=== PATIENT | male | born 1965 | race American Indian/Alaskan Native ===

== ENCOUNTER 2018-05-22 18:17 | Emergency (ER) | payer BC ==
[2018-05-22 18:18] VITALS: BMI 35.5
[2018-05-22 18:40] VITALS: O2SAT 99
[2018-05-22] MEDS ORDERED: Sodium Chloride 0.9% 1,000 ML IV STA (18:53)
--- NOTE | 2018-05-22 18:58 | ED PDOC ---
Arrival/HPI - General Chief Complaint: Back Pain Time Seen by Provider: 05/22/18 18:32 Historian: Patient - History of Present Illness Narrative History of Present Illness (Text): 05/22/18 18:56 53 yo M w/ PMH of hypertension and diabetes, presents to the ER complaining of 3 day h/o sudden onset of constant R flank pain radiating tot he R groin. Pt states that he was recently told by his omd he has kidney stones found on Ultr asound Otherwise reports no fever, chills, nausea, vomiting, diarrrhea, urinary symptoms, trauma, injury, heavy lifting, bowel/bladder incontinence, weakness, paresthesia. Past Medical History - Infectious Disease Hx of Infectious Diseases: None - Tetanus Immunization Tetanus Immunization: Up to Date - Cardiac Hx Hypertension: Yes - Endocrine/Metabolic Hx Diabetes Mellitus Type 2: Yes - Psychiatric Hx Substance Use: No - Past Surgical History Past Surgical History: No Previous - Anesthesia Hx Anesthesia: No Hx Anesthesia Reactions: No Hx Malignant Hyperthermia: No - Suicidal Assessment Feels Threatened In Home Enviroment: No Family/Social History Family/Social History: No Known Family HX Smoking Status: Never Smoked Hx Alcohol Use: No Hx Substance Use: No Hx Substance Use Treatment: No Allergies/Home Meds Allergies/Adverse Reactions: Allergies No Known Allergies Allergy (Verified 07/02/14 05:08) Home Medications: Home Meds Medication Instructions Recorded Confirmed No Known Home Med 07/02/14 07/02/14 Review of Systems - Review of Systems Constitutional: absent: Fatigue, Fevers Respiratory: absent: SOB, Cough Cardiovascular: absent: Chest Pain, Palpitations Gastrointestinal: absent: Abdominal Pain, Nausea, Vomiting Genitourinary Male: absent: Dysuria, Frequency, Hematuria Musculoskeletal: Back Pain. absent: Arthralgias, Neck Pain Skin: absent: Rash, Pruritis, Skin Lesions Neurological: absent: Headache, Dizziness Physical Exam Vital Signs Temp Pulse Resp BP Pulse Ox 05/22/18 18:38 98.2 F 97 H 19 144/87 99 Temperature: Afebrile Blood Pressure: Normal Pulse: Regular Respiratory Rate: Normal Appearance: Positive for: Well-Appearing, Non-Toxic, Comfortable Pain Distress: None Mental Status: Positive for: Alert and Oriented X 3 - Systems Exam Head: Present: Atraumatic, Normocephalic Pupils: Present: PERRL Extroacular Muscles: Present: EOMI Conjunctiva: Present: Normal Mouth: Present: Moist Mucous Membranes Neck: Present: Normal Range of Motion Respiratory/Chest: Present: Clear to Auscultation, Good Air Exchange. No: Respiratory Distress, Accessory Muscle Use Cardiovascular: Present: Regular Rate and Rhythm, Normal S1, S2. No: Murmurs Abdomen: No: Tenderness, Distention, Peritoneal Signs, Rebound, Guarding Back: Present: Normal Inspection. No: CVA Tenderness, Midline Tenderness, Paraspinal Tenderness Upper Extremity: Present: Normal Inspection. No: Cyanosis, Edema Lower Extremity: Present: Normal Inspection. No: Edema Neurological: Present: GCS=15, CN II-XII Intact, Speech Normal, Motor Func Grossly Intact, Normal Sensory Function Skin: Present: Warm, Dry, Normal Color. No: Rashes Psychiatric: Present: Alert, Oriented x 3, Normal Insight, Normal Concentration Medical Decision Making ED Course and Treatment: 05/22/18 18:55 Plan : - Labs - IV - CT A/P CBC reviewed and wnl, CMP and UA still pending, CMP hemolyzed, however the patient is refusing another blood draw or IV attempt by any ER staff. Patient refuses further care, evaluation or treatment in the ER. He is refusing labs and CT. Patient informed of the reasons for the following and planned treatment, which patient understands, however still refuses. Patient informed of the risk and benefits of treatment. Informed that the risk could include worsening of current conditions, undiagnosed conditions, disability or even . Patient understands the following risk and the benefits of treatment. Patient has the capacity to make decisions and still refuses treatment by RN, PA and ER MD. Patient encouraged to return to the ER at any time and to follow up with pmd. 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 Disposition/Present on Arrival - Present on Arrival Any Indicators Present on Arrival: Yes History of DVT/PE: No History of Uncontrolled Diabetes: Yes Urinary Catheter: No History of Decub. Ulcer: No History Surgical Site Infection Following: None - Disposition Have Diagnosis and Disposition been Completed?: Yes Diagnosis: Flank pain, acute Disposition: AGAINST MEDICAL ADVICE Disposition Time: 20:00 Patient Plan: Other (pt wishes to leave AMA) Condition: UNKNOWN Discharge Instructions (ExitCare): Flank Pain (DC), Leaving Against Medical Advice Referrals: Mohamud Worrell DO [Primary Care Provider] - Follow up with primary Forms: [employer] (Armenian)
[2018-05-22 19:00] LABS: BASO # 0.01 K/mm3 (0.0-2.0); BASO % 0.2 % (0.0-3.0); EOS # 0.3 (0.0-0.7); EOS % 5.2 % (1.5-5.0); GRAN # 2.2 (1.4-6.5); GRAN % 42.3 % (50.0-68.0); LYMPH # 2.4 (1.2-3.4); LYMPH % 46.7 % (22.0-35.0); MEAN CELL VOLUME 89.8 fl (80.0-105.0); MEAN CORPUSCULAR HEMOGLOBIN 31.2 pg (25.0-35.0); MEAN CORPUSCULAR HGB CONC 34.7 g/dl (31.0-37.0); MEAN PLATELET VOLUME 12.1 fl (7.0-11.0); MONO # 0.3 (0.1-0.6); MONO % 5.6 % (1.0-6.0); RBC 4.81 10^6/uL (3.5-6.1); RED CELL DISTRIBUTION WIDTH 12.8 % (11.5-14.5); WHITE BLOOD COUNT 5.2 10^3/uL (4.5-11.0)
[2018-05-22 20:18] VITALS: BP 134/86; PULSE 95; RESP 18; TEMP 98
== END 2018-05-22 20:12 | disposition left against medical advice (07) ==
LOC: ED 18:17
DX: R10.9 Unspecified abdominal pain (principal)

== ENCOUNTER 2018-09-20 14:15 | Emergency (ER) | payer BC ==
[2018-09-20 14:29] VITALS: TEMP 98.4; BMI 32.0
--- NOTE | 2018-09-20 15:10 | ED PDOC ---
Arrival/HPI - History of Present Illness Narrative History of Present Illness (Text): 09/20/18 15:04 Pt is a 53yo male with a PMH of DM, HTN, HLD who presents with neck pain and a headache. Pt states the neck pain started about 1 month ago and a headache that started today. Pt denies history of neck injury, fall or photophobia. Pt denies speaking with his PMD Dr Worrell about his neck pain. Pt denies this ever happening before. Time/Duration: > month Symptom Course: Worsening <Edgardo Heck - Last Filed: 09/20/18 17:13> <Kong Benson DO - Last Filed: 09/20/18 19:53> - General Chief Complaint: Headache Past Medical History - Infectious Disease Hx of Infectious Diseases: None - Tetanus Immunization Tetanus Immunization: Up to Date - Cardiac Hx Hypertension: Yes - Endocrine/Metabolic Hx Diabetes Mellitus Type 2: Yes - Psychiatric Hx Substance Use: No - Past Surgical History Past Surgical History: No Previous - Anesthesia Hx Anesthesia: No Hx Anesthesia Reactions: No Hx Malignant Hyperthermia: No - Suicidal Assessment Feels Threatened In Home Enviroment: No <Edgardo Heck - Last Filed: 09/20/18 17:13> Family/Social History Family/Social History: Unknown Family HX Smoking Status: Never Smoked Hx Alcohol Use: No Hx Substance Use: No Hx Substance Use Treatment: No <Edgardo Heck - Last Filed: 09/20/18 17:13> Allergies/Home Meds <Edgardo Heck - Last Filed: 09/20/18 17:13> <Kong Benson DO - Last Filed: 09/20/18 19:53> Allergies/Adverse Reactions: Allergies No Known Allergies Allergy (Verified 07/02/14 05:08) Physical Exam Vital Signs Temp Pulse Resp BP Pulse Ox 09/20/18 14:27 98.4 F 81 118 H 149/100 H 96 Temperature: Afebrile Blood Pressure: Normal Pulse: Regular Respiratory Rate: Normal Appearance: Positive for: Well-Appearing Mental Status: Positive for: Alert and Oriented X 3 - Systems Exam Head: Present: Atraumatic, Normocephalic Pupils: Present: PERRL Extroacular Muscles: Present: EOMI Mouth: Present: Moist Mucous Membranes Neck: Present: Normal Range of Motion Respiratory/Chest: Present: Clear to Auscultation, Good Air Exchange. No: Respiratory Distress, Accessory Muscle Use Cardiovascular: Present: Regular Rate and Rhythm, Normal S1, S2 Abdomen: No: Tenderness, Distention Neurological: Present: GCS=15, CN II-XII Intact, Speech Normal Skin: Present: Warm, Dry, Rashes Psychiatric: Present: Alert, Oriented x 3, Normal Insight <Edgardo Heck - Last Filed: 09/20/18 17:13> Vital Signs Temp Pulse Resp BP Pulse Ox 09/20/18 15:40 73 17 140/89 100 09/20/18 14:27 98.4 F 81 118 H 149/100 H 96 <Kong Benson DO - Last Filed: 09/20/18 19:53> Medical Decision Making ED Course and Treatment: 09/20/18 15:14 pt given a prescription for motrin 600 and also flexeril recommend pt follow up with his PMD Dr Worrell recommend pt to have out pt MRI to evaluate his neck pain Pt seen, examined, assessment, and plan discussed with Dr Marcelino Heck PGY1 <Edgardo Heck - Last Filed: 09/20/18 17:13> - Medication Orders Current Medication Orders: Discontinued Medications Ibuprofen (Motrin Tab) 600 mg PO STAT STA Stop: 09/20/18 15:12 Last Admin: 09/20/18 15:25 Dose: 600 mg MAR Pain/Vitals Document 09/20/18 15:25 CD (Rec: 09/20/18 15:25 CD [id number] Pain Reassessment Is This A Pain ReAssessment? No Sleep Is patient sleeping during reassessment? No Presence of Pain Presence of Pain Yes Pain Scale Used Protocol: PSCALES Pain Scale Used Numeric Location Pain Location Body Site Neck Description Constant Intensity 8 <Kong Benson DO - Last Filed: 09/20/18 19:53> Disposition/Present on Arrival - Present on Arrival Any Indicators Present on Arrival: No History of DVT/PE: No History of Uncontrolled Diabetes: Yes Urinary Catheter: No History of Decub. Ulcer: No History Surgical Site Infection Following: None - Disposition Have Diagnosis and Disposition been Completed?: Yes Disposition Time: 17:13 <Edgardo Heck - Last Filed: 09/20/18 17:13> - Disposition Disposition Time: 15:00 <Kong Benson DO - Last Filed: 09/20/18 19:53> - Disposition Diagnosis: Neck sprain Disposition: HOME/ ROUTINE Condition: GOOD Discharge Instructions (ExitCare): Cervical Muscle Strain (DC) Additional Instructions: WENCESLAO MARTINEZ, thank you for letting us take care of you today. The emergency medical care you received today was directed at your acute symptoms. If you were prescribed any medication, please fill it and take as directed. It may take several days for your symptoms to resolve. Return to the Emergency Department if your symptoms worsen, do not improve, or if you have any other problems. Please contact your doctor or call one of the physicians/clinics you have been referred to that are listed on the Patient Visit Information form that is included in your discharge packet. Bring any paperwork you were given at discharge with you along with any medications you are taking to your follow up visit. Our treatment cannot replace ongoing medical care by a primary care provider outside of the emergency department. Thank you for allowing the [facility] team to be part of your care today. Follow up with your primary care doctor in 2-3 days for re-evaluation and further management. Prescriptions: Cyclobenzaprine [Cyclobenzaprine HCl] 10 mg PO Q8 PRN #20 tab PRN Reason: Muscle Spasm Ibuprofen [Motrin] 600 mg PO Q6 PRN #20 tab PRN Reason: Pain, Moderate (4-7) Referrals: Mohamud Worrell DO [Family Provider] - Follow up with primary Forms: [employer] (Hungarian)
[2018-09-20 15:41] VITALS: BP 140/89; PULSE 73; RESP 17; O2SAT 100
== END 2018-09-20 15:53 | disposition home or self-care (01) ==
LOC: ED 14:15
DX: S13.9XXA Sprain of joints and ligaments of unspecified parts of neck, initial encounter (principal); X58.XXXA Exposure to other specified factors, initial encounter; E11.9 Type 2 diabetes mellitus without complications; E78.5 Hyperlipidemia, unspecified; I10 Essential (primary) hypertension